=== PATIENT | male | born 1995 ===

== ENCOUNTER 2018-06-09 18:43 | Emergency (ER) | payer MEDICAID ==
[2018-06-09 18:47] VITALS: BMI 20.9
[2018-06-09 18:50] VITALS: RESP 18
[2018-06-09] MEDS ORDERED: Atrop/Hyosc/Scopal/PB Elixir (120 ml) PO STA (19:07)
[2018-06-09] MEDS ORDERED: Alum-Mag Hydrox-Simethicone Susp (30 mL) PO STA (19:07)
[2018-06-09 19:27] LABS: BASO # 0.04 K/mm3 (0.0-2.0); BASO % 0.6 % (0.0-3.0); EOS # 0.3 (0.0-0.7); EOS % 4.7 % (1.5-5.0); HEMOGLOBIN 16.1 g/dL (14.0-18.0); LYMPH # 2.9 (1.2-3.4); LYMPH % 41.5 % (22.0-35.0); MEAN CELL VOLUME 83.5 fl (80.0-105.0); MEAN CORPUSCULAR HEMOGLOBIN 29.2 pg (25.0-35.0); MEAN PLATELET VOLUME 9.8 fl (7.0-11.0); MONO # 0.7 (0.1-0.6); MONO % 9.5 % (1.0-6.0); RBC 5.51 10^6/uL (3.5-6.1); RED CELL DISTRIBUTION WIDTH 12.8 % (11.5-14.5)
--- NOTE | 2018-06-09 19:27 | ED PDOC ---
Arrival/HPI - General Chief Complaint: Abdominal Pain Time Seen by Provider: 06/09/18 19:06 Historian: Patient - History of Present Illness Narrative History of Present Illness (Text): 22 year old M w/ no significant medical history presenting to the Emergency Room for intermittent epigastrium abdominal pain ongoing for the past month. He describes the pain as colicky, localized to the epigastrium that is worsened after the ingestion of food. He states he has attempted to self-medicate with OTC analgesics with no alleviation in his symptoms and has attempted to retch in the hopes of relieving the pain. He reports a 5lb unintentional weight loss, but denies any novelty foods, recent traveling outside the country or contacts with similar symptoms. He reports associated watery diarrhea. He denies fevers, chills, chest pain, shortness of breath, rashes, syncopal episodes or syncopal episodes. Time/Duration: Prior to Arrival Symptom Onset: Gradual Symptom Course: Unchanged Quality: Aching Severity Level: 8, Moderate Activities at Onset: Eating Context: Home Past Medical History - Provider Review Nursing Documentation Reviewed: Yes - Travel History Have you recently traveled outside [place] w/in the past 3 mons?: No - Psychiatric Hx Substance Use: No - Anesthesia Hx Anesthesia: No Family/Social History - Physician Review Nursing Documentation Reviewed: Yes Family/Social History: Unknown Family HX Smoking Status: Never Smoked Hx Alcohol Use: No Frequency of alcohol use: Few days per week Hx Substance Use: No Allergies/Home Meds Allergies/Adverse Reactions: Allergies No Known Allergies Allergy (Verified 06/09/18 18:47) Review of Systems - Physician Review All systems were reviewed & negative as marked: Yes - Review of Systems Gastrointestinal: Abdominal Pain, Diarrhea, Nausea, Appetite Changes, Food Intolerance. absent: Stool Changes, Constipation, Vomiting Physical Exam Vital Signs Reviewed: Yes Vital Signs Temp Pulse Resp BP Pulse Ox 06/09/18 18:49 97.6 F 66 18 112/68 100 Temperature: Afebrile Blood Pressure: Normal Pulse: Regular Respiratory Rate: Normal Appearance: Positive for: Well-Appearing, Non-Toxic, Comfortable Mental Status: Positive for: Alert and Oriented X 3 - Systems Exam Head: Present: Atraumatic, Normocephalic Pupils: Present: PERRL Extroacular Muscles: Present: EOMI Conjunctiva: Present: Normal Mouth: Present: Moist Mucous Membranes Neck: Present: Normal Range of Motion Respiratory/Chest: Present: Clear to Auscultation, Good Air Exchange. No: Respiratory Distress, Wheezes, Decreased Breath Sounds Abdomen: Present: Tenderness (epigastric tenderness), Normal Bowel Sounds. No: Distention, Peritoneal Signs Neurological: Present: Speech Normal, Motor Func Grossly Intact, Normal Sensory Function Skin: Present: Warm, Dry, Rashes, Normal Color Psychiatric: Present: Alert, Oriented x 3, Normal Insight, Normal Concentration Medical Decision Making ED Course and Treatment: 06/09/18 19:32 Impression 22M w/ abdominal pain ongoing for the last 4 weeks Plan --Labs --Urinalysis --Maalox --Pepcid -- Progress Notes - Lab Interpretations Lab Results: 06/09/18 19:20 06/09/18 19:20 Lab Results 06/09/18 19:20: Sodium 141, Potassium 4.5, Chloride 101, Carbon Dioxide 32, Anion Gap 12, BUN 15, Creatinine 0.9, Est GFR ( Amer) > 60, Est GFR (Non- Af Amer) > 60, Random Glucose 73, Calcium 9.2, Magnesium 1.9, Total Bilirubin 0.5, AST 33, ALT 24, Alkaline Phosphatase 50, Total Protein 8.0, Albumin 4.6, Globulin 3.4, Albumin/Globulin Ratio 1.3, Lipase 127 06/09/18 19:20: WBC 7.0, RBC 5.51, Hgb 16.1, Hct 46.0, MCV 83.5, MCH 29.2, MCHC 35.0, RDW 12.8, Plt Count 257, MPV 9.8, Neut % (Auto) 43.7 L, Lymph % (Auto) 41.5 H, [place] % (Auto) 9.5 H, Eos % (Auto) 4.7, Baso % (Auto) 0.6, Lymph # (Auto) 2.9, [place] # (Auto) 0.7 H, Eos # (Auto) 0.3, Baso # (Auto) 0.04, Absolute Neuts (auto) 3.05 I have reviewed the lab results: Yes - Medication Orders Current Medication Orders: Discontinued Medications Al Hydrox/Mg Hydrox/Simethicone (Maalox Plus 30 Ml) 30 ml PO STAT STA Stop: 06/09/18 19:08 Belladonna/Phenobarbital ( Elixir) 5 ml PO STAT STA Stop: 06/09/18 19:08 Famotidine (Pepcid) 20 mg IVP STAT STA Stop: 06/09/18 19:08 Metoclopramide HCl (Reglan) 10 mg IVP STAT STA Stop: 06/09/18 19:08 Disposition/Present on Arrival - Present on Arrival Any Indicators Present on Arrival: No History of DVT/PE: No History of Uncontrolled Diabetes: No Urinary Catheter: No History of Decub. Ulcer: No History Surgical Site Infection Following: None - Disposition Have Diagnosis and Disposition been Completed?: Yes Diagnosis: Gastroenteritis Disposition: HOME/ ROUTINE Disposition Time: 20:00 Patient Plan: Discharge Condition: IMPROVED Discharge Instructions (ExitCare): Gastritis (DC), Gastroenteritis (ED) Print Language: MALTESE Additional Instructions: Please follow up in clinic in 3-5 days Please schedule a follow up appointment with the GI specialist listed in your paperwork Prescriptions: Aluminum Hydroxide/Magnesium H [Maalox 30 ml] 30 ml PO Q6H #50 udc Famotidine [Pepcid] 40 mg PO DAILY #10 tablet Ondansetron ODT [Zofran ODT] 4 mg PO Q6H #10 odt Referrals: Ana Cornejo MD [Medical Doctor] - Follow up with primary Peter Buck MD [Staff Provider] - Follow up with primary Estelita Meeks DO [Doctor Osteopathy] - Follow up with primary Forms: [employer] ([place]), WORK NOTE, SCHOOL NOTE
[2018-06-09 19:37] LABS: ALB/GLOB RATIO 1.3 (1.1-1.8); ALBUMIN 4.6 g/dL (3.0-4.8); ALT/SGPT 24 U/L (7-56); AST/SGOT 33 U/L (17-59); BLOOD UREA NITROGEN 15 mg/dL (7-21); CALCIUM 9.2 mg/dL (8.4-10.5); GFR NON-AFRICAN AMERICAN > 60; LIPASE 127 U/L (23-300)
[2018-06-09 20:56] VITALS: BP 122/71; PULSE 58; TEMP 98; O2SAT 98
--- NOTE | 2018-06-10 09:03 | RAD ---
Date of service: 06/09/2018 HISTORY: abdominal pain COMPARISON: No prior. TECHNIQUE: 1 view obtained. FINDINGS: LUNGS: No active pulmonary disease. PLEURA: No significant pleural effusion identified, no pneumothorax apparent. CARDIOVASCULAR: No aortic atherosclerotic calcification present. Normal cardiac size. No pulmonary vascular congestion. OSSEOUS STRUCTURES: No significant abnormalities. VISUALIZED UPPER ABDOMEN: Normal. OTHER FINDINGS: None. IMPRESSION: No active disease.
== END 2018-06-09 20:55 | disposition home or self-care (01) ==
LOC: ED 18:43 → MERGE 18:43 → ED 20:55
DX: K52.9 Noninfective gastroenteritis and colitis, unspecified (principal)
CPT/HCPCS: 71045; 80053; 83690; 83735; 85025; 96374; 96375; 99283; J2765